=== PATIENT | male | born 1980 | race Caucasian/White ===

== ENCOUNTER 2017-10-14 18:34 | Emergency (ER) | payer SELFPAY ==
[~2017-10-14] VITALS: Ht 185.4 cm; Wt 99.8 kg
[2017-10-14 19:19] VITALS: BP_SYST 110
--- NOTE | 2017-10-14 20:15 | NUR ---
Placed in room 08 . Placed on quality assurance monitor body, blood pressure machine and pulse oximeter. To gown for exam. Side rails up.
--- NOTE | 2017-10-14 20:20 | NUR ---
Dr Harvey at bedside examining patient
--- NOTE | 2017-10-14 20:25 | NUR ---
Pt brought by self,A&Ox4, pt presents to ER with pain , redness and clear discharge on R eye, eye was injured 4 days ago while playing basketball. +Blurred vision, pt refused vision exam at this time, states he already knows he has a corneal abrasion.
[2017-10-14] MEDS ORDERED: TETRACAINE HCL 0.5% OPHTHALMIC DROPS 15 ML OP ONE (20:30)
--- NOTE | 2017-10-14 20:30 | NUR ---
Medication administered as ordered, well tolerated
--- NOTE | 2017-10-14 21:00 | NUR ---
Pt eloped from ER
== END 2017-10-14 21:00 | disposition left against medical advice (07) ==
LOC: SED 18:34
DX: S05.01XA Injury of conjunctiva and corneal abrasion without foreign body, right eye, initial encounter (principal); Z53.20 Procedure and treatment not carried out because of patient's decision for unspecified reasons; X58.XXXA Exposure to other specified factors, initial encounter; Y93.89 Activity, other specified; Y92.89 Other specified places as the place of occurrence of the external cause; Y99.8 Other external cause status
CPT/HCPCS: 99283

== ENCOUNTER 2017-10-14 23:18 | Emergency (ER) | payer SELFPAY ==
[~2017-10-14] VITALS: Ht 185.4 cm; Wt 99.8 kg
[2017-10-14 23:18] VITALS: BP_SYST 112
--- NOTE | 2017-10-14 23:18 | NUR ---
Patient to ER bed 7 to gown for evaluation. Side rails up. Report given to Michael ARGUETA.
--- NOTE | 2017-10-14 23:20 | NUR ---
Patient ambulatory to ED a/o x 4 with c/o right eye pain after getting poked in eye while playing basketball x 4 days ago. Redness noted to eye. +blurred vision and light sensitivity. No discharge.
--- NOTE | 2017-10-14 23:23 | NUR ---
ED MD Harvey at bedside for medical evaluation.
[2017-10-14] MEDS ORDERED: GENTAMICIN SULFATE 0.3% OPHT. 5 ML DROPS OP ONE (23:45)
[2017-10-14 23:50] VITALS: BP_SYST 118
--- NOTE | 2017-10-14 23:50 | NUR ---
Patient given written and verbal discharge instructions and verbalizes understanding. ER MD discussed with patient the results and treatment provided. Patient in stable condition. ID arm band removed. Rx of Ciloxan ointment given. Patient educated on pain management and to follow up with PMD. Pain Scale 3/10 tolerable for patient. Opportunity for questions provided and answered. Medication side effect fact sheet provided.
== END 2017-10-14 23:50 | disposition home or self-care (01) ==
LOC: SED 23:18
DX: S05.01XA Injury of conjunctiva and corneal abrasion without foreign body, right eye, initial encounter (principal); X58.XXXA Exposure to other specified factors, initial encounter; Y93.89 Activity, other specified; Y92.89 Other specified places as the place of occurrence of the external cause; Y99.8 Other external cause status
CPT/HCPCS: 99283

== ENCOUNTER 2019-10-18 02:37 | Emergency (ER) | payer SELFPAY ==
[~2019-10-18] VITALS: Ht 185.4 cm; Wt 104.3 kg
[2019-10-18 02:37] VITALS: BP_SYST 124
--- NOTE | 2019-10-18 02:37 | NUR ---
Patient to ER bed 08 to gown for evaluation. Side rails up. Report given to KENDALL JONES
--- NOTE | 2019-10-18 02:38 | NUR ---
ER at bedside examining patient.
[2019-10-18] MEDS: BACITRACIN ZINC 15 GM TOPICAL OINTMENT TP SCH ×2 (02:53→02:55)
--- NOTE | 2019-10-18 02:59 | NUR ---
Site to left hand cleansed with betadine and ns. Site measures approximately 1cm. dsd dressing applied. Tetanus vaccination current.
--- NOTE | 2019-10-18 03:00 | NUR ---
Patient given written and verbal discharge instructions and verbalizes understanding. ER MD Gtz discussed with patient the results and treatment provided. Patient in stable condition. ID arm band removed. Patient educated on pain management and to follow up with PMD. Pain Scale 1/10. Opportunity for questions provided and answered. Medication side effect fact sheet provided.
== END 2019-10-18 03:00 | disposition home or self-care (01) ==
LOC: SED 02:37
DX: S60.411A Abrasion of left index finger, initial encounter (principal); W45.8XXA Other foreign body or object entering through skin, initial encounter; Y93.89 Activity, other specified; Y92.89 Other specified places as the place of occurrence of the external cause; Y99.8 Other external cause status
CPT/HCPCS: 99282